=== PATIENT | female | born 1960 | race Caucasian/White ===

== ENCOUNTER 2022-11-12 14:40 | Outpatient (CLI) | payer OTHER, SELFPAY ==
--- NOTE | 2022-11-12 15:00 | CRLHL7_ITS ---
For Patients: As a result of the Century Cures Act, medical imaging exams and procedure reports are released immediately into your electronic medical record. You may view this report before your referring provider. If you have questions, please contact your health care provider. BILATERAL SCREENING MAMMOGRAM WITH COMPUTER-AIDED DETECTION AND TOMOSYNTHESIS TECHNIQUE: CC and MLO views were obtained. These mammographic images have been obtained using full-field digital technique. These mammographic images were interpreted with the benefit of computer-aided detection. Breast Tomosynthesis was used in this interpretation. COMPARISON FILM: 05/02/19, 04/08/18, 02/10/17. FINDINGS: The breasts are heterogeneously dense, which may obscure small masses IMPRESSION: There is no radiographic evidence for malignancy. ASSESSMENT: BI-RADS Category 1: Negative RECOMMENDATION: Routine screening mammogram in 1 year. A lay language report of this examination will be provided to the patient. Maximilian Ashraf M.D. Diagnostic Radiologist [email or web address] JUSTIN/Dictated by: Maximilian Ashraf MD @ 11/13/2022 11:08:00 AM (Electronically Signed)
== END 2022-11-12 14:41 | disposition home or self-care (01) ==
LOC: MAMMO 14:42
PROVIDERS: PCP Family Medicine; Visit Provider Family Medicine
DX: Z12.31 Encounter for screening mammogram for malignant neoplasm of breast (principal); R92.2 Inconclusive mammogram
CPT/HCPCS: 77063; 77067

== ENCOUNTER 2023-02-08 07:35 | Outpatient (CLI) | payer OTHER, SELFPAY | END 2023-02-08 07:36 | disposition home or self-care (01) | LOC: NFLDREF 13:49 | PROVIDERS: PCP Family Medicine; Referring Provider Family Medicine; Visit Provider Family Medicine | DX: Z01.419 Encounter for gynecological examination (general) (routine) without abnormal findings (principal); E03.9 Hypothyroidism, unspecified; E78.5 Hyperlipidemia, unspecified; F41.9 Anxiety disorder, unspecified; E89.0 Postprocedural hypothyroidism; F32.A Depression, unspecified | CPT/HCPCS: 80053; 80061; 84443 ==

== ENCOUNTER 2024-04-03 07:44 | Outpatient (CLI) | payer BC, SELFPAY ==
--- OUTSIDE RECORDS SUMMARY | 2024-04-07 19:34 | XMS_ITS | Clinical Summary ---
Author Organization [facility] Address [place], [place] [address] Care Team Providers Care Can Reforming Machine Operator Name Role Phone Pcp, No Primary Care Provider Unavailabl e Allergies No known active allergies Medications Medication Sig Dispensed Refills Start Date End Date Status CALCIUM 600 + D 600 MG-125 UNIT TAB one tab daily 0 04/13/2008 Active levothyroxine (SYNTHROID) 88 mcg tabletIndications:Other specified acquired hypothyroidism TAKE 1 TABLET BY MOUTH EVERY DAY 30 tablet 0 06/11/2014 Active Active Problems Problem Noted Date Diagnosed Date Major depressive disorder, single episode, unspe cified 01/06/2008 Toxic diffuse goiter without mention of thyrotoxic crisis or storm 01/20/2007 Other specified acquired hypothyroidism 01/21/20 07 Immunizations Name Administration Dates Next Due Influenza, IIV3 (Age >=3 years) 09/07/2005 Family History Medical History Relation Name Comments Cancer Father colon Psychiatric illness Mother hypochon driac- anxiety Relation Name Status Comments Father Mother Social History Tobacco Use Types Packs/Day Years Used Date Smoking Tobacco: Every Day Cigarettes 0.3 20 Tobacco Cessation:Counseling Given: Yes Comments:10 cigarettes/day Alcohol Use Standard Drinks/Week Comments No 0 (1 standard drink = 0.6 oz pur e alcohol) Sex and Gender Information Value Date Recorded Sex Assigned at Not on file Gender Identity Not on file Sexual Orientation Not on file Obstetrics History Para Term AB IAB SAB Ectopic Multiple Livin g Live Births 3 3 Date Outcome GA Total Labor Labor/2nd/3rd Weight Sex Delivery Anes PTL Christie A1 A5 Name Cl in Last Filed Vital Signs Vital Sign Reading Time Taken Comments Blood Pressure 125/79 02/13/2013 7:00 AM CDT Pulse 66 02/13/2013 7:00 AM CDT Temperature 36.7 ??C (98.1 ??F) 02/13/2013 7:00 AM CD T Respiratory Rate - - Oxygen Saturation - - Inhaled Oxygen Concentration - - Weight 66.6 kg (146 lb 12.8 oz) 02/13/2013 7:00 AM CDT Height 162.6 cm (5' 4) 11/03/2012 11:2 5 AM ENVIRONMENTAL HEALTH SPECIALIST Body Mass Index 25.2 11/03/2012 11:25 AM ENVIRONMENTAL HEALTH SPECIALIST Plan of Treatment Health Maintenance Due Date Last Done Comments Tdap 1972 Depression screening for age 12+ 1973 HIV for age 15-65 1976 BMI (ht and wt on same day) for age 18+ 1979 Hepatitis C screening for age 18-79 1979 Tetanus booster 1981 Colonoscopy through age 75 2006 Zoster (shingles) series for age 50+ (1 of 2) 2011 Lipids for age 45-75 03/24/2012 03/24/2007 Mammogram for age 45-75 11/03/2013 11/03/20 12, 11/03/2012, 05/10/2007 COVID-19 vaccine series (2022- season) 2023 Influenza for age 50-64 07/16/2024 09/07/2005 Pap test for age 21-65 02/11/2026 , 02/11/2023, 12/04/2015, Additional history exists Pneumococcal series for age 6-64 Aged Out No longer eligible based on patient's age to complete this topic Procedures Procedure Name Priority Date/Time Associated Diagnosis Comments HPV THIN PREP Routine 02/11/2023 7:40 AM CDT XR MAMMO BILAT SCREEN FFDM (IA) Routine 11/03/2012 11:10 AM ENVIRONMENTAL HEALTH SPECIALIST Other screening mammogram LIPID PANEL Routine 03/24/2007 7:46 AM CDT Routine General Medical Exam from Last 3 Months or Most Recently Relevant to Health Maintenance Results * HPV HIGH RISK (02/11/2023 7:40 AM CDT) TYPE 16 Negative Negative 02/16/2023 4:56 PM CDT [facility] TYPE 18 Negative Negative 02/16/2023 4:56 PM CDT [facility] OTHER HIGH RISK TYPES Negative Negative 02/16/2023 4:56 PM CDT [facility] Other (Cervical) 02/11/2023 7:40 AM CDT 02/12/2023 5:40 PM CDT Narrative [facility] - 02/16/2023 4:56 PM CDT HPV types 16, 18, 31, 33, 35, 39, 45, 51, 52, 56, 58, 59, 66 and 68 DNA were undetectable or below the pre-set threshold. Methodology: [employer] 4800 HPV Test Charleen Headley MD MICROBIOLOGY [facility] [address] [place] [address], [place] * XR MAMMO BILAT SCREEN FFDM (11/03/2012 11:10 AM ENVIRONMENTAL HEALTH SPECIALIST) Anatomical Region Laterality Modality BREASTS, Breast Left, Breast Right Bilateral Mammography Impressions 11/03/2012 12:56 PM ENVIRONMENTAL HEALTH SPECIALIST ??There is no radiographic evidence for malignancy. ??Recommend annual mammograms. A lay language report of this examination will be provided to the patient. MAMMOGRAM ASSESSMENT: ??ACR 2 Benign Narrative 11/03/2012 12:56 PM ENVIRONMENTAL HEALTH SPECIALIST XR MAMMO BILAT SCREEN FFDM [G0202.0] CLINICAL HISTORY: ??This is an asymptomatic 52 y.o. patient. INDICATION FOR EXAM: Mammogram Screening. TECHNIQUE: CC & MLO views were obtained. ??This digital study was evaluated with the assistance of Computer-Aided Detection. ?? COMPARISON FILMS: Yes 05/10/07 FINDINGS: ??Mammographically, the breast tissue is heterogeneously dense, which could obscure detection of small masses (approximately 51% - 75% glandular). ??No suspicious masses or microcalcifications. ??Benign appearing calcifications within both breasts and Benign appearing mass(es) within both breasts. Procedure Note Arnaldo Godfrey, DO - 11/03/2012 XR MAMMO BILAT SCREEN FFDM [G0202.0] CLINICAL HISTORY: This is an asymptomatic 52 y.o. patient. INDICATION FOR EXAM: Mammogram Screening. TECHNIQUE: CC & MLO views were obtained. This digital study was evaluatedwith the assistance of Computer-Aided Detection. COMPARISON FILMS: Yes 05/10/07 FINDINGS: Mammographically, the breast tissue is heterogeneously dense,which could obscure detection of small masses (approximately 51% - 75%glandular). No suspicious masses or microcalcifications. Benignappearing calcifications within both breasts and Benign appearing mass(es)within both breasts. IMPRESSION: There is no radiographic evidence for malignancy. Recommendannual mammograms. A lay language report of this examination will be provided to the patient. MAMMOGRAM ASSESSMENT: ACR 2 Benign Lili Delgadillo 3RD MATE MAMMO * (ABNORMAL) LIPID PANEL (03/24/2007 7:46 AM CDT) CHOLESTEROL,TOTAL 155 110 - 199 mg/dL [facility] TRIGLYCERIDES 81 <150 mg/dL [facility] HDL CHOLESTEROL 32(L) >40 mg/dL [facility] CHOL/HDL RATIO 4.84(H) <4.51 [facility] LDL CHOLESTEROL 107 <131 mg/dL [facility] PATIENT STATUS Fasting [facility] Blood specimen (specimen) BLOOD SPECIMEN / Unknown 03/24/2007 7:46 AM CDT 03/24/2007 7:39 AM CDT Chrissy Iqbal NP CHEMISTRY [facility] [address] [place] [address] from Last 3 Months or Most Recently Relevant to Health Maintenance Care Teams Can Reforming Machine Operator Relationship Specialty Start Date End Date Pcp, No . PCP - General 10/21/18
== END 2024-04-03 07:45 | disposition home or self-care (01) ==
LOC: NFLDREF 04-07 19:33
PROVIDERS: PCP Family Medicine; Referring Provider Family Medicine; Visit Provider Family Medicine
DX: E78.5 Hyperlipidemia, unspecified (principal); E03.9 Hypothyroidism, unspecified; Z13.1 Encounter for screening for diabetes mellitus
CPT/HCPCS: 80061; 82947; 84443

== ENCOUNTER 2024-07-05 07:43 | Outpatient (CLI) | payer BC, SELFPAY ==
--- OUTSIDE RECORDS SUMMARY | 2024-07-05 07:47 | XMS_ITS | Clinical Summary ---
Author Organization [facility] Address [place], [place] [address] Care Team Providers Care Pearl Cutter Name Role Phone Pcp, No Primary Care [...] Outcome GA Total Labor Labor/2nd/3rd Weight Sex Type Anes PTL Christie A1 A5 Name Clin Last Filed Vital Signs Vital Sign Reading [...] cm (5' 4) 11/03/2012 11:2 5 AM TANK SETTER Body Mass Index 25.2 11/03/2012 11:25 AM TANK SETTER Plan of Treatment Health Maintenance Due Date [...] SCREEN FFDM (IA) Routine 11/03/2012 11:10 AM TANK SETTER Other screening mammogram LIPID PANEL Routine 03/24/2007 7:46 AM CDT Routine General Medical Exam from Last 3 Months or Most Recently Relevant to Health Maintenance Results * HPV HIGH RISK (02/11/2023 7:40 AM CDT) TYPE 16 Negative Negative 02/16/2023 4:56 PM CDT [facility] TYPE 18 Negative Negative 02/16/2023 4:56 PM CDT [facility] OTHER HIGH RISK TYPES Negative Negative 02/16/2023 4:56 PM CDT [facility] Other (Cervical) 02/11/2023 7:40 AM CDT 02/12/2023 5:40 PM CDT Narrative [facility] - 02/16/2023 4:56 PM CDT HPV types 16, 18, 31, 33, 35, 39, 45, 51, 52, 56, 58, 59, 66 and 68 DNA were undetectable or below the pre-set threshold. Methodology: [employer] 4800 HPV Test Charleen Headley MD MICROBIOLOGY [facility] [address] [place] [address], [place] * XR MAMMO BILAT SCREEN FFDM (11/03/2012 11:10 AM TANK SETTER) Anatomical Region Laterality Modality BREASTS, Breast Left, Breast Right Bilateral Mammography Impressions 11/03/2012 12:56 PM TANK SETTER ??There is no radiographic evidence for malignancy. ??Recommend annual mammograms. A lay language report of this examination will be provided to the patient. MAMMOGRAM ASSESSMENT: ??ACR 2 Benign Narrative 11/03/2012 12:56 PM TANK SETTER XR MAMMO BILAT SCREEN FFDM [G0202.0] CLINICAL [...] MAMMOGRAM ASSESSMENT: ACR 2 Benign Lili Delgadillo PHYSICAL TESTING SUPERVISOR MAMMO * (ABNORMAL) LIPID PANEL (03/24/2007 7:46 AM CDT) CHOLESTEROL,TOTAL 155 110 - 199 mg/dL [facility] TRIGLYCERIDES 81 <150 mg/dL [facility] HDL CHOLESTEROL 32(L) >40 mg/dL [facility] CHOL/HDL RATIO 4.84(H) <4.51 [facility] LDL CHOLESTEROL 107 <131 mg/dL [facility] PATIENT STATUS Fasting [facility] Blood specimen (specimen) BLOOD SPECIMEN / Unknown 03/24/2007 7:46 AM CDT 03/24/2007 7:39 AM CDT Chrissy Iqbal NP CHEMISTRY [facility] [address] [place] [address] from Last 3 Months or Most Recently Relevant to Health Maintenance Care Teams Pearl Cutter Relationship Specialty Start Date End Date Pcp, No . PCP - General 10/21/18
--- NOTE | 2024-07-05 08:15 | CRLHL7_ITS ---
For Patients: As a result of the Century Cures Act, medical imaging exams and procedure reports are released immediately into your electronic medical record. You may view this report before your referring provider. If you have questions, please contact your health care provider. BILATERAL SCREENING MAMMOGRAM WITH COMPUTER-AIDED DETECTION AND TOMOSYNTHESIS TECHNIQUE: CC and MLO views were obtained. These mammographic images have been obtained using full-field digital technique. These mammographic images were interpreted with the benefit of computer-aided detection. Breast tomosynthesis was used in this interpretation. COMPARISON FILM: 11/12/22, 05/02/19, 04/08/18. FINDINGS: There are scattered areas of fibroglandular density. IMPRESSION: There is no radiographic evidence for malignancy. ASSESSMENT: BI-RADS Category 2: Benign RECOMMENDATION: Routine screening mammogram in 1 year. A lay language report of this examination will be provided to the patient. MAXIMILIAN SARMIENTO M.D. Diagnostic Radiologist [email or web address] Transcribed: 3:[address]/Dictated by: Maximilian Sarmiento MD @ 07/05/2024 11:38:00 AM (Electronically Signed)
== END 2024-07-05 07:44 | disposition home or self-care (01) ==
LOC: MAMMO 07:45
PROVIDERS: PCP Family Medicine; Visit Provider Family Medicine
DX: Z12.31 Encounter for screening mammogram for malignant neoplasm of breast (principal)
CPT/HCPCS: 77063; 77067

== ENCOUNTER 2025-04-10 07:27 | Outpatient (CLI) | payer BC, SELFPAY | END 2025-04-10 07:28 | disposition home or self-care (01) | LOC: NFLDREF 04-12 15:31 | PROVIDERS: PCP Family Medicine; Referring Provider Family Medicine; Visit Provider Family Medicine | DX: E78.5 Hyperlipidemia, unspecified (principal); E89.0 Postprocedural hypothyroidism; I10 Essential (primary) hypertension | CPT/HCPCS: 80053; 80061; 84439; 84443 ==

== ENCOUNTER 2025-05-29 08:15 | Outpatient (RCR) | payer BC, SELFPAY | END 2025-06-29 11:49 | disposition home or self-care (01) | PROVIDERS: PCP Family Medicine; Visit Provider Family Medicine | DX: M25.561 Pain in right knee (principal); M25.562 Pain in left knee; M79.604 Pain in right leg; G89.29 Other chronic pain; Z51.89 Encounter for other specified aftercare | CPT/HCPCS: 97110; 97161 ==

== ENCOUNTER 2025-08-07 07:59 | Outpatient (CLI) | payer BC, SELFPAY ==
--- NOTE | 2025-08-07 08:15 | CRLHL7_ITS ---
For Patients: As a result of the Century Cures Act, medical imaging exams and procedure reports are released immediately into your electronic medical record. You may view this report before your referring provider. If you have questions, please contact your health care provider. INDICATION: BILATERAL SCREENING MAMMOGRAM, ASYMPTOMATIC 65 Y/O FEMALE COMPARISON: 07/05/2024, 11/12/2022, 05/02/2019 TECHNIQUE: Digital mammogram in CC and MLO projections including computer-aided detection (CAD) and tomosynthesis. BREAST COMPOSITION: The breasts are heterogeneously dense, which may obscure small masses. FINDINGS: No suspicious findings. ASSESSMENT: BI-RADS 1 Negative RECOMMENDATION: Annual screening mammogram. A lay language report of this examination will be provided to the patient. Dictated by: Alba Henderson MD @ 08/08/2025 09:48:01 (Electronically Signed)
== END 2025-08-07 08:00 | disposition home or self-care (01) ==
LOC: MAMMO 08:00
PROVIDERS: PCP Family Medicine; Visit Provider Family Medicine
DX: Z12.39 Encounter for other screening for malignant neoplasm of breast (principal); R92.333 Mammographic heterogeneous density, bilateral breasts
CPT/HCPCS: 77063; 77067